=== PATIENT | female | born 2000 | race Caucasian/White ===

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

== ENCOUNTER → 2020-01-01 | Outpatient (CLI) | payer OTHER ==
[~2020-01-01] MED LIST changes: +CYCL-707 PO; -CYCL10TA PO
--- NOTE | 2020-01-01 15:57 | REP ---
INDICATION: PAIN LEFT KNEE COMPARISON: None. TECHNIQUE: AP, lateral, bilateral oblique and sunrise views. FINDINGS: The osseous structures and joint spaces are intact and normal. There is no evidence for acute fracture or dislocation. No joint effusion is appreciated. Surrounding soft tissues are unremarkable. No subcutaneous emphysema or radiodense foreign body. IMPRESSION: Normal examination. No acute fracture or dislocation. <Electronically signed by Vin Singleton > 01/01/20 [id number]
== END ==
LOC: M WUC 15:22
PROVIDERS: ATTEND Physician Assistant
DX: M25.562 Pain in left knee (principal)